=== PATIENT | female | born 1990 | race Caucasian/White ===

== ENCOUNTER 2018-09-25 13:01 | Emergency (ER) | payer OTHER ==
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
[2018-09-25 14:26] VITALS: BP 121/82
== END 2018-09-25 14:27 | disposition home or self-care (01) ==
LOC: ED 13:01
DX: S20.211A Contusion of right front wall of thorax, initial encounter (principal); V43.62XA Car passenger injured in collision with other type car in traffic accident, initial encounter
CPT/HCPCS: 71046; 72100; 99283

== ENCOUNTER 2018-12-21 20:57 | Emergency (ER) | payer OTHER ==
[2018-12-21 21:04] VITALS: BP 127/80
[2018-12-21] MEDS ORDERED: HYDROcod/ACET 5/325 Prepack 4 PO STA (21:20)
[2018-12-21] MEDS ORDERED: predniSONE 20 MG TABLET PO STA (21:20)
--- NOTE | 2018-12-21 21:28 | ED Physician Documentation ---
PD HPI BACK PAIN - Stated complaint Stated Complaint: BACK PX - Chief complaint Chief Complaint: Back Pain - History obtained from History obtained from: Patient - History of Present Illness Timing - onset: Other (28-year-old woman with 5 days of atraumatic back pain, it basically goes from the parathoracic muscles up high down to the para-Lumbar muscles down low. It is worse with bending and twisting and she does notice numbness in the left leg without urinary incontinence, saddle anesthesia or fevers.) Review of Systems Constitutional: denies: Fever, Chills Throat: denies: Dental pain / toothache, Sore throat Cardiac: denies: Chest pain / pressure, Palpitations Respiratory: denies: Dyspnea, Cough : reports: LMP (current). 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 Cardiovascular: Other HEENT: Tonsil/Adenoidectomy - Present Medications Home Medications: Ambulatory Orders Medication Instructions Recorded Confirmed Albuterol Sulfate 1 - 2 puffs PO Q4H 09/19/17 12/21/18 Duloxetine HCl [Cymbalta] 60 mg PO TID 09/19/17 12/21/18 Rizatriptan Benzoate [Maxalt] 10 mg PO DAILY 09/19/17 12/21/18 Cyclobenzaprine [Flexeril] 10 mg PO TID PRN #20 tablet 09/25/18 12/21/18 Hydrocodone/Acetaminophen 1 - 2 each PO Q6H PRN #14 tablet 12/21/18 [Hydrocodon-Acetaminophen 5-325] predniSONE [Deltasone] 60 mg PO DAILY 5 Days tablet 12/21/18 - Allergies Allergies/Adverse Reactions: Allergies Allergy/AdvReac Type Severity Reaction Status Date / Time oxycodone Allergy Severe Anaphylaxis Verified 12/21/18 21:05 gabapentin Allergy Unknown Verified 12/21/18 21:05 - Social History Does the pt smoke?: No Smoking Status: Never smoker Does the pt drink ETOH?: Yes Does the pt have substance abuse?: No - Immunizations Immunizations are current?: Yes Immunizations: TDAP current <10years, TDAP >10years/unknown - POLST Patient has POLST: No PD ED PE NORMAL - Vitals Vital signs reviewed: Yes - General General: Alert and oriented X 3, Other (Comfortable at rest but winces with motion) - Neck Neck: Supple, no meningeal sign, No bony TTP - Cardiac Cardiac: RRR, No murmur - Respiratory Respiratory: No respiratory distress, Clear bilaterally - Abdomen Abdomen: Non tender - Back Back: Other (She has muscular tenderness of the paralumbar and parathoracic muscles without specific midline tenderness or localization.) - Extremities Extremities: Other (She has mild and very subjective decreased sensation in the left leg but does not follow a dermatomal pattern, it is the whole leg. There is no associated asymmetry in her slightly hyperactive reflexes in both the patellar and Achilles areas. She has normal strength in flexion and extension at the ankles and knees.) - Neuro Neuro: Alert and oriented X 3, Normal speech Results - Vitals Vitals: Vital Signs - 24 hr 12/21/18 21:00 Temperature 36.8 C Heart Rate 99 Respiratory 17 Rate Blood Pressure 127/80 O2 Saturation 95 Oxygen O2 Source Room air PD MEDICAL DECISION MAKING - ED course ED course: This patient has seemingly uncomplicated musculoskeletal back pain. The patient has no "red flags." Specifically denies IV drug use, fevers, incontinence, saddle anesthesia. Spinal epidural abscess was considered, given that the patient has no fever, is not diabetic, has no spinal tenderness, does not use IV drugs, and has no bilateral neurologic symptoms, the diagnosis of spinal epidural abscess is considered exceedingly unlikely. Departure - Departure Disposition: 01 Home, Self Care Clinical Impression: Back pain Qualifiers: Back pain location: back pain in unspecified location Chronicity: acute Back pain laterality: bilateral Qualified Code(s): M54.9 - Dorsalgia, unspecified Condition: Good Record reviewed to determine appropriate education?: Yes Instructions: ED Neck Back Pain General Prescriptions: Hydrocodone/Acetaminophen [Hydrocodon-Acetaminophen 5-325] 1 - 2 each PO Q6H PRN #14 tablet PRN Reason: pain predniSONE [Deltasone] 60 mg PO DAILY 5 Days tablet Comments: Call your doctor to arrange a follow-up appointment, make the next available appointment. In the interim, return anytime if worse or if new symptoms develop.
== END 2018-12-21 21:36 | disposition home or self-care (01) ==
LOC: ED 20:57
DX: M54.9 Dorsalgia, unspecified (principal)
CPT/HCPCS: 99283; J7512

== ENCOUNTER 2019-02-02 16:57 | Emergency (ER) | payer OTHER ==
[2019-02-02 17:46] LABS: BASOPHILS % (AUTO) 0.2 %; EOSINOPHILS # (AUTO) 0.2 10^3/uL (0.0-0.7); EOSINOPHILS % (AUTO) 1.5 %; HGB - HEMOGLOBIN 15.7 g/dL (12.0-16.0); LYMPHOCYTES # (AUTO) 0.9 10^3/uL (1.5-3.5); LYMPHOCYTES % (AUTO) 7.2 %; MEAN CORPUSCULAR HEMOGLOBIN 30.5 pg (27.0-31.0); MEAN CORPUSCULAR HGB CONC 33.9 g/dL (32.0-36.0); MEAN CORPUSCULAR VOLUME 89.9 fL (81.0-99.0); MEAN PLATELET VOLUME 8.1 fL (7.9-10.8); MONOCYTES % (AUTO) 7.7 %; NEUTROPHILS # (AUTO) 10.4 10^3/uL (1.5-6.6); NEUTROPHILS % (AUTO) 83.4 %; PLT - PLATELET COUNT 301 10^3/uL (130-450); RED BLOOD COUNT 5.14 10^6/uL (4.20-5.40); RED CELL DISTRIBUTION WIDTH 12.9 % (12.0-15.0); WHITE BLOOD COUNT 12.5 x10^3/uL (4.8-10.8)
[2019-02-02 17:54] LABS: ALBUMIN 4.9 g/dL (3.2-5.5); ALBUMIN/GLOBULIN RATIO 1.6 (1.0-2.2); BILIRUBIN,TOTAL 0.9 mg/dL (0.2-1.0); CALCIUM 9.2 mg/dL (8.5-10.3); TOTAL PROTEIN 7.9 g/dL (6.7-8.2)
[2019-02-02 18:29] LABS: BILIRUBIN,URINE NEGATIVE (NEGATIVE); GLUCOSE, URINE (UA) NEGATIVE (NEGATIVE); KETONES,URINE (UA) NEGATIVE (NEGATIVE); LEUKOCYTE ESTERASE, URINE NEGATIVE (NEGATIVE); NITRITE,URINE POSITIVE (NEGATIVE); OCCULT BLOOD,URINE TRACE-INTA (NEGATIVE); PH,URINE 5.5 PH (5.0-7.5); PROTEIN,URINE TRACE mg/dL (NEGATIVE); UROBILINOGEN,URINE 0.2 (NORMAL) E.U./dL (NORMAL)
[2019-02-02 18:31] LABS: CLARITY,URINE TURBID (CLEAR); HCG UR QUAL NEGATIVE
[2019-02-02 18:38] LABS: AMORPHOUS SEDIMENT,UR Marked /LPF; BACTERIA,URINE None Seen /HPF (None Seen); RBC,URINE None Seen /HPF (0-5); SQUAMOUS EPITHELIAL CELL,UR NONE SEEN (<= Few)
--- NOTE | 2019-02-02 19:23 | ED Physician Documentation ---
PD HPI NVD - Stated complaint Stated Complaint: VOMITING - Chief complaint Chief Complaint: Abd Pain - History obtained from History obtained from: Patient - History of Present Illness Timing - onset: Last night Timing - duration: Hours (12) Timing - details: Abrupt onset, Still present Associated symptoms: Abdominal pain (crampy intermittent), Loss of appetite. No: Fever, Near syncope / syncope, Dysuria Contributing factors: No: Sick contact, Bad food, Travel Worsened by: Eating Similar symptoms before: Has not had sx before Recently seen: Not recently seen Review of Systems Constitutional: reports: Myalgias. denies: Fever, Chills Nose: denies: Rhinorrhea / runny nose, Congestion Throat: denies: Sore throat Respiratory: denies: Cough GI: reports: Nausea, Vomiting (many times), Diarrhea. denies: Abdominal Swelling, Constipation, Hematemesis, Bloody / black stool : denies: Dysuria, Frequency Neurologic: reports: Generalized weakness, Near syncope. 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 Cardiovascular: Other HEENT: Tonsil/Adenoidectomy - Present Medications Home Medications: Ambulatory Orders Medication Instructions Recorded Confirmed Albuterol Sulfate 1 - 2 puffs PO Q4H PRN 09/19/17 02/02/19 Duloxetine HCl [Cymbalta] 60 mg PO TID 09/19/17 02/02/19 Rizatriptan Benzoate [Maxalt] 10 mg PO DAILY PRN 09/19/17 02/02/19 Cyclobenzaprine [Flexeril] 10 mg PO TID PRN #20 tablet 09/25/18 02/02/19 Diphenoxylate/Atropine [Lomotil] 1 each PO QID PRN #12 tablet 02/02/19 Ferrous Sulfate 325 mg PO DAILY 02/02/19 02/02/19 Ondansetron Odt [Zofran] 4 mg TL Q6H PRN #10 tablet 02/02/19 - Allergies Allergies/Adverse Reactions: Allergies Allergy/AdvReac Type Severity Reaction Status Date / Time oxycodone Allergy Severe Anaphylaxis Verified 02/02/19 17:06 gabapentin Allergy Unknown Verified 02/02/19 17:06 - Social History Does the pt smoke?: No Smoking Status: Never smoker Does the pt drink ETOH?: Yes Does the pt have substance abuse?: No - Immunizations Immunizations are current?: Yes Immunizations: TDAP current <10years, TDAP >10years/unknown - POLST Patient has POLST: No PD ED PE NORMAL - Vitals Vital signs reviewed: Yes - General General: Alert and oriented X 3, No acute distress, Well developed/nourished - HEENT HEENT: Pharynx benign. No: Moist mucous membranes - Neck Neck: Supple, no meningeal sign, No adenopathy - Cardiac Cardiac: RRR, No murmur - Respiratory Respiratory: Clear bilaterally - Abdomen Abdomen: Normal bowel sounds, Soft, Non tender, Non distended - Back Back: No CVA TTP - Derm Derm: Normal color, Warm and dry Results - Vitals Vitals: Oxygen O2 Source Room air - Labs Labs: Microbiology 02/02/19 17:28 Urine Culture - Preliminary Urine,Clean Catch CULTURE IN PROGRESS. RESULTS TO FOLLOW. Laboratory Tests 02/02/19 02/02/19 02/02/19 17:25 17:25 17:28 WBC 12.5 H RBC 5.14 Hgb 15.7 Hct 46.2 MCV 89.9 MCH 30.5 MCHC 33.9 RDW 12.9 Plt Count 301 MPV 8.1 Neut # (Auto) 10.4 H Lymph # (Auto) 0.9 L [place] # (Auto) 1.0 Eos # (Auto) 0.2 Baso # (Auto) 0.0 Absolute Nucleated RBC 0.00 Nucleated RBC % 0.0 Sodium 139 Potassium 3.7 Chloride 103 Carbon Dioxide 24 Anion Gap 12.0 BUN 14 Creatinine 1.0 Estimated GFR (MDRD) 66 L Glucose 107 H Calcium 9.2 Total Bilirubin 0.9 AST 24 ALT 15 Alkaline Phosphatase 68 Total Protein 7.9 Albumin 4.9 Globulin 3.0 Albumin/Globulin Ratio 1.6 Lipase 29 Urine Color YELLOW Urine Clarity TURBID Urine pH 5.5 Ur Specific [place] >=1.030 H Urine Protein TRACE Urine Glucose (UA) NEGATIVE Urine Ketones NEGATIVE Urine Occult Blood TRACE-INTA Urine Nitrite POSITIVE H Urine Bilirubin NEGATIVE Urine Urobilinogen 0.2 (NORMAL) Ur Leukocyte Esterase NEGATIVE Urine RBC None Seen Urine WBC 0-3 Ur Squamous Epith Cells NONE SEEN Amorphous Sediment Marked Urine Bacteria None Seen Ur Microscopic Review INDICATED Urine Culture Comments INDICATED Urine HCG, Qual NEGATIVE PD MEDICAL DECISION MAKING - ED course Complexity details: re-evaluated patient (feeling improved with IV fluids and meds. ), considered differential (she did feel lightheaded and is tachycardic, and so shared decision to give IV fluids and meds. ), d/w patient Departure - Departure Disposition: 01 Home, Self Care Clinical Impression: Nausea vomiting and diarrhea, Dehydration Condition: Stable Record reviewed to determine appropriate education?: Yes Instructions: ED Gastroenteritis Viral Follow-Up: KEE MARINELLI [Primary Care Provider] - Prescriptions: Diphenoxylate/Atropine [Lomotil] 1 each PO QID PRN #12 tablet PRN Reason: Diarrhea Ondansetron Odt [Zofran] 4 mg TL Q6H PRN #10 tablet PRN Reason: Nausea / Vomiting Comments: Small frequent fluids at home. Start with bland food such as simple carbohydrates (pastas, rice, breads and cereals). Progress diet as able. Ondansetron if needed for nausea. Lomotil if needed for diarrhea. Tylenol if needed for pains and cramps. The symptoms typically are viral and last for a day or 2 and then improve. Recheck if not improved over that timeframe and return if worse. Discharge Date/Time: 02/02/19 21:35
[2019-02-02] MEDS ORDERED: SODIUM CHLORIDE 0.9% 1,000 ML IV ONE ×2 (19:29→19:31)
[2019-02-02] MEDS ORDERED: KETOROLAC 15 MG/ML VIAL IVP STA (19:29)
[2019-02-02] MEDS ORDERED: ONDANSETRON 4 MG/2 ML VIAL IVP STA (19:29)
[2019-02-02] MEDS ORDERED: DIPHENOX/ATROPINE 2.5/0.025 MG TABLET PO STA (19:30)
[2019-02-02] MEDS ORDERED: MORPHINE 10 MG/ML VIAL IVP STA (19:30)
[2019-02-02 21:07] VITALS: BP 97/55
[2019-02-02] MEDS ORDERED: ONDANSETRON ODT 4 MG Prepack 2 TL PRN (21:16)
== END 2019-02-02 21:35 | disposition home or self-care (01) ==
LOC: ED 16:57
DX: E86.0 Dehydration (principal); R11.2 Nausea with vomiting, unspecified; R19.7 Diarrhea, unspecified
CPT/HCPCS: 36415; 80053; 81001; 81025; 83690; 85025; 87086; 96361; 96374; 96375; 99283; A9270; 81003

== ENCOUNTER 2019-05-04 19:43 | Emergency (ER) | payer OTHER ==
[2019-05-04 20:31] LABS: BASOPHILS # (AUTO) 0.1 10^3/uL (0.0-0.1); BASOPHILS % (AUTO) 0.9 %; EOSINOPHILS # (AUTO) 0.4 10^3/uL (0.0-0.7); EOSINOPHILS % (AUTO) 3.9 %; HGB - HEMOGLOBIN 13.8 g/dL (12.0-16.0); LYMPHOCYTES # (AUTO) 3.2 10^3/uL (1.5-3.5); LYMPHOCYTES % (AUTO) 31.4 %; MEAN CORPUSCULAR HEMOGLOBIN 30.3 pg (27.0-31.0); MEAN CORPUSCULAR HGB CONC 32.9 g/dL (32.0-36.0); MEAN CORPUSCULAR VOLUME 92.3 fL (81.0-99.0); MEAN PLATELET VOLUME 9.9 fL (7.9-10.8); MONOCYTES # (AUTO) 1.2 10^3/uL (0.0-1.0); MONOCYTES % (AUTO) 11.5 %; NEUTROPHILS # (AUTO) 5.2 10^3/uL (1.5-6.6); NEUTROPHILS % (AUTO) 52.1 %; PLT - PLATELET COUNT 253 10^3/uL (130-450); RED BLOOD COUNT 4.55 10^6/uL (4.20-5.40); RED CELL DISTRIBUTION WIDTH 11.9 % (12.0-15.0)
[2019-05-04 20:45] LABS: ALBUMIN 4.4 g/dL (3.2-5.5); ALBUMIN/GLOBULIN RATIO 1.6 (1.0-2.2); BILIRUBIN,TOTAL 0.8 mg/dL (0.2-1.0); CALCIUM 9.4 mg/dL (8.5-10.3); CREATININE 0.9 mg/dL (0.4-1.0); TOTAL PROTEIN 7.1 g/dL (6.7-8.2)
[2019-05-04] MEDS ORDERED: ALBUTEROL NEB 2.5 MG/3 ML INH STA (20:55)
--- NOTE | 2019-05-04 21:06 | XRAY Report ---
Reason: Chest Pain Procedure Date: 05/04/2019 Accession Number: [id number] / [id number] Procedure: XR - Chest 1 View X-Ray CPT Code: 55194 FULL RESULT: EXAM: CHEST RADIOGRAPHY EXAM DATE: 05/04/2019 08:40 PM. CLINICAL HISTORY: Chest Pain. COMPARISON: CHEST 2 VIEW 09/25/2018 1:40 PM. TECHNIQUE: 1 view. FINDINGS: Lungs/Pleura: No dense consolidation. No large effusion or pneumothorax. No pulmonary edema. Mediastinum: Heart and mediastinal contours are unremarkable. Other: None. IMPRESSION: No acute radiographic pulmonary abnormalities. RADIA
--- NOTE | 2019-05-04 21:11 | ED Physician Documentation ---
History of Present Illness - Stated complaint Stated Complaint: CP/TIGHTNESS/PALPITATIONS - Chief complaint Chief Complaint: Cardiac - History obtained from History obtained from: Patient - History of Present Illness Timing: Yesterday Pain level max: 3 Pain level now: 3 - Additonal information Additional information: 28-year-old female presents to the emergency department stating that her chest feels tight since yesterday. States she feels like she cannot get a full breath. No chest pain. No change with inspiration. No recent travel. No calf swelling. Nothing makes it better or worse. Has not used inhalers before. Is not coughing. No fevers. No abdominal pain. Has had her gallbladder and appen gunnar removed. Denies any possibility of Review of Systems Constitutional: denies: Fever, Chills Throat: denies: Sore throat Cardiac: denies: Chest pain / pressure, Palpitations Respiratory: denies: Cough, Hemoptysis, Wheezing GI: reports: Nausea. 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 Cardiovascular: Other HEENT: Tonsil/Adenoidectomy - Present Medications Home Medications: Ambulatory Orders Medication Instructions Recorded Confirmed Albuterol Sulfate 1 - 2 puffs PO Q4H PRN 09/19/17 02/02/19 Duloxetine HCl [Cymbalta] 60 mg PO TID 09/19/17 02/02/19 Rizatriptan Benzoate [Maxalt] 10 mg PO DAILY PRN 09/19/17 02/02/19 Cyclobenzaprine [Flexeril] 10 mg PO TID PRN #20 tablet 09/25/18 02/02/19 Diphenoxylate/Atropine [Lomotil] 1 each PO QID PRN #12 tablet 02/02/19 Ferrous Sulfate 325 mg PO DAILY 02/02/19 02/02/19 Ondansetron Odt [Zofran] 4 mg TL Q6H PRN #10 tablet 02/02/19 Albuterol Sulf [Ventolin Hfa 1 - 2 puffs INH Q4HR PRN #1 inhaler 05/04/19 Inhaler] predniSONE [Deltasone] 10 mg PO [id number] #42 tab 05/04/19 - Allergies Allergies/Adverse Reactions: Allergies Allergy/AdvReac Type Severity Reaction Status Date / Time oxycodone Allergy Severe Anaphylaxis Verified 02/02/19 17:06 gabapentin Allergy Unknown Verified 02/02/19 17:06 - Social History Does the pt smoke?: No Smoking Status: Never smoker Does the pt drink ETOH?: Yes Does the pt have substance abuse?: No - Immunizations Immunizations are current?: Yes Immunizations: TDAP current <10years, TDAP >10years/unknown - POLST Patient has POLST: No PD ED PE NORMAL - Vitals Vital signs reviewed: Yes - General General: Alert and oriented X 3, No acute distress, Well developed/nourished - HEENT HEENT: PERRL, Moist mucous membranes - Neck Neck: Supple, no meningeal sign - Cardiac Cardiac: RRR, Strong equal pulses - Respiratory Respiratory: No respiratory distress, Clear bilaterally, Other (Diminished breath sounds bilaterally) - Abdomen Abdomen: Soft, Non tender, Non distended - Back Back: No CVA TTP, No spinal TTP - Derm Derm: Warm and dry - Extremities Extremities: No edema, No calf tenderness / cord - Neuro Neuro: Alert and oriented X 3 - Psych Psych: Normal mood, Normal affect Results - Vitals Vitals: Vital Signs - 24 hr 05/04/19 05/04/19 19:55 21:51 Temperature 36.7 C Heart Rate 88 60 Respiratory 16 14 Rate Blood Pressure 126/77 144/91 H O2 Saturation 100 100 Oxygen O2 Source Room air - EKG (time done) 1950 Rate: Rate (enter#) (85) Rhythm: NSR [place]: Normal Intervals: Normal [place] QRS: Normal Ischemia: Normal ST segments - Labs Labs: Laboratory Tests 05/04/19 05/04/19 05/04/19 20:25 20:25 20:25 WBC 10.0 RBC 4.55 Hgb 13.8 Hct 42.0 MCV 92.3 MCH 30.3 MCHC 32.9 RDW 11.9 L Plt Count 253 MPV 9.9 Neut # (Auto) 5.2 Lymph # (Auto) 3.2 [place] # (Auto) 1.2 H Eos # (Auto) 0.4 Baso # (Auto) 0.1 Absolute Nucleated RBC 0.00 Nucleated RBC % 0.0 Sodium 140 Potassium 3.7 Chloride 102 Carbon Dioxide 26 Anion Gap 12.0 BUN 14 Creatinine 0.9 Estimated GFR (MDRD) 75 L Glucose 88 Calcium 9.4 Total Bilirubin 0.8 AST 18 ALT 11 Alkaline Phosphatase 61 Troponin I < 0.04 Total Protein 7.1 Albumin 4.4 Globulin 2.7 Albumin/Globulin Ratio 1.6 Lipase 37 - Rads (name of study) cxr Radiology: Prelim report reviewed, EMP read contemporaneously, See rad report (No acute radiographic pulmonary abnormalities. ) PD MEDICAL DECISION MAKING - ED course Complexity details: reviewed results, re-evaluated patient, considered differential, d/w patient ED course: 28-year-old female with what appears to be an asthma exacerbation. No evidence of pulmonary embolus, acute coronary syndrome, pneumothorax. Will place on a steroid taper for home. We will refill her inhaler as well. Patient counseled regarding signs and symptoms for which I believe and urgent re-evaluation would be necessary. Patient with good understanding of and agreement to plan and is comfortable going home at this time This document was made in part using voice recognition software. While efforts are made to proofread this document, sound alike and grammatical errors may occur. Departure - Departure Disposition: 01 Home, Self Care Clinical Impression: Asthma exacerbation Qualifiers: Asthma severity: unspecified severity Asthma persistence: unspecified Qualified Code(s): J45.901 - Unspecified asthma with (acute) exacerbation Condition: Good Instructions: ED Reactive Airway Disease Follow-Up: KEE MARINELLI [Primary Care Provider] - Within 1 week Prescriptions: Albuterol Sulf [Ventolin Hfa Inhaler] 1 - 2 puffs INH Q4HR PRN #1 inhaler PRN Reason: Shortness Of Air/Wheezing predniSONE [Deltasone] 10 mg PO [id number] #42 tab Comments: Use the inhaler as prescribed. Return if you worsen. Follow-up with your doctor for further care. Discharge Date/Time: 05/04/19 22:07
[2019-05-04] MEDS ORDERED: predniSONE 20 MG TABLET PO STA (21:40)
[2019-05-04 21:53] VITALS: BP 144/91
== END 2019-05-04 22:07 | disposition home or self-care (01) ==
LOC: ED 19:43
DX: J45.901 Unspecified asthma with (acute) exacerbation (principal)
CPT/HCPCS: 36415; 71045; 80053; 83690; 84484; 85025; 93005; 94640; 99284; J7512

== ENCOUNTER 2019-05-10 19:37 | Emergency (ER) | payer OTHER ==
[2019-05-10 19:59] LABS: BASOPHILS # (AUTO) 0.1 10^3/uL (0.0-0.1); BASOPHILS % (AUTO) 0.3 %; EOSINOPHILS % (AUTO) 0.1 %; HGB - HEMOGLOBIN 13.5 g/dL (12.0-16.0); LYMPHOCYTES % (AUTO) 13.6 %; MEAN CORPUSCULAR HEMOGLOBIN 30.1 pg (27.0-31.0); MEAN CORPUSCULAR HGB CONC 32.5 g/dL (32.0-36.0); MEAN CORPUSCULAR VOLUME 92.6 fL (81.0-99.0); MEAN PLATELET VOLUME 9.6 fL (7.9-10.8); MONOCYTES % (AUTO) 6.5 %; NEUTROPHILS # (AUTO) 11.8 10^3/uL (1.5-6.6); NEUTROPHILS % (AUTO) 78.6 %; PLT - PLATELET COUNT 315 10^3/uL (130-450); RED BLOOD COUNT 4.48 10^6/uL (4.20-5.40); RED CELL DISTRIBUTION WIDTH 11.9 % (12.0-15.0)
--- NOTE | 2019-05-10 20:01 | ED Physician Documentation ---
PD HPI OVERDOSE - Stated complaint Stated Complaint: OD - Chief complaint Chief Complaint: MHE - History obtained from History obtained from: Patient - History of Present Illness Timing - onset: How many hours ago (1-2) Subtance(s) ingested: Single (hydroxyzine, about 11 tabs.). No: EtOH Associated symptoms: Other (somnolence) Contributing factors: Depresssed, Other (She states she has had problems with depression and anxiety. She has been on antidepressant for a while. She is seen by her provider recently and added buspirone twice daily and hydroxyzine to use as needed for anxiety. The patient states she is feeling anxious this afternoon and took 2 of the hydroxyzine tablets as directed. She had taken a couple of them last evening as well. She states she was feeling only slightly sleepy and still anxious and got upset and so took a "handful" of the hydroxyzine. Her found out in part of here for evaluation. She is feeling sleepy and dry mouth but no blurred vision is able to talk clearly. She is not feeling lightheaded. She denies suicidal intent but stated she just wanted the anxiety to stop and says she felt she lost control of her impulse at the time of taking the tablets.). No: Suicidal Similar symptoms before: Has not had sx before (She denies prior suicide at tempts or overdoses.) Recently seen: Clinic (see above) Review of Systems Constitutional: denies: Fever Nose: denies: Rhinorrhea / runny nose, Congestion Throat: denies: Sore throat Cardiac: denies: Chest pain / pressure Respiratory: denies: Cough GI: reports: Nausea. denies: Vomiting, Diarrhea Skin: denies: Rash, Laceration (s) Neurologic: denies: Altered mental status, Headache PD PAST MEDICAL HISTORY - Past Medical History Cardiovascular: Other Respiratory: Asthma Neuro: Migraines GI: Ulcers Psych: Depression, Anxiety, Panic attacks Musculoskeletal: Fibromyalgia - Past Surgical History Past Surgical History: Yes General: Cholecystectomy, Appendectomy /[employer]: section Cardiovascular: Other HEENT: Tonsil/Adenoidectomy - Present Medications Home Medications: Ambulatory Orders Medication Instructions Recorded Confirmed Albuterol Sulfate 1 - 2 puffs PO Q4H PRN 09/19/17 02/02/19 Duloxetine HCl [Cymbalta] 60 mg PO TID 09/19/17 02/02/19 Rizatriptan Benzoate [Maxalt] 10 mg PO DAILY PRN 09/19/17 02/02/19 Cyclobenzaprine [Flexeril] 10 mg PO TID PRN #20 tablet 09/25/18 02/02/19 Diphenoxylate/Atropine [Lomotil] 1 each PO QID PRN #12 tablet 02/02/19 Ferrous Sulfate 325 mg PO DAILY 02/02/19 02/02/19 Ondansetron Odt [Zofran] 4 mg TL Q6H PRN #10 tablet 02/02/19 Albuterol Sulf [Ventolin Hfa 1 - 2 puffs INH Q4HR PRN #1 inhaler 05/04/19 Inhaler] predniSONE [Deltasone] 10 mg PO [id number] #42 tab 05/04/19 - Allergies Allergies/Adverse Reactions: Allergies Allergy/AdvReac Type Severity Reaction Status Date / Time oxycodone Allergy Severe Anaphylaxis Verified 05/10/19 19:42 gabapentin Allergy Unknown Verified 05/10/19 19:42 - Social History Does the pt smoke?: No Smoking Status: Never smoker Does the pt drink ETOH?: Yes Does the pt have substance abuse?: No - Immunizations Immunizations are current?: Yes Immunizations: TDAP current <10years, TDAP >10years/unknown - POLST Patient has POLST: No PD ED PE NORMAL - Vitals Vital signs reviewed: Yes - General General: Alert and oriented X 3, No acute distress, Well developed/nourished - HEENT HEENT: Pharynx benign. No: Moist mucous membranes - Neck Neck: Supple, no meningeal sign, No adenopathy - Cardiac Cardiac: RRR, No murmur - Respiratory Respiratory: Clear bilaterally - Abdomen Abdomen: Soft, Non tender - Derm Derm: Normal color, Warm and dry - Extremities Extremities: No edema - Neuro Neuro: Alert and oriented X 3, preservationist 2-12 intact, No motor deficit, No sensory deficit, Normal speech Eye Opening: Spontaneous Motor: Obeys Commands Verbal: Oriented GCS Score: 15 Results - Vitals Vitals: Vital Signs - 24 hr 05/10/19 05/10/19 05/10/19 19:38 19:51 20:12 Temperature 36.0 C L Heart Rate 69 62 56 L Respiratory 18 9 L 15 Rate Blood Pressure 122/74 124/71 115/86 H O2 Saturation 99 100 97 05/10/19 05/10/19 05/10/19 20:30 21:00 21:52 Temperature Heart Rate 56 L 56 L 53 L Respiratory 17 16 16 Rate Blood Pressure 103/67 106/60 106/66 O2 Saturation 98 100 99 05/10/19 05/10/19 05/10/19 22:00 22:30 23:00 Temperature Heart Rate 45 L 47 L 62 Respiratory 14 16 20 Rate Blood Pressure 101/66 108/67 107/68 O2 Saturation 100 99 100 05/10/19 23:21 Temperature 36.8 C Heart Rate 62 Respiratory 14 Rate Blood Pressure 107/68 O2 Saturation 100 Oxygen O2 Source Room air - EKG (time done) 20:08 Rate: Rate (enter#) (64) Rhythm: NSR [place]ette: Normal Intervals: Normal AL. No: Prolonged QT Ischemia: Normal ST segments. No: ST elevation c/w ischemia, ST depression 22:26 Rate: Rate (enter#) (45) Rhythm: Sinus bradycardia Intervals: No: Prolonged QT Ischemia: Normal ST segments. No: ST elevation c/w ischemia, ST depression - Labs Labs: Laboratory Tests 05/10/19 05/10/19 05/10/19 19:48 19:48 19:54 WBC 15.0 H RBC 4.48 Hgb 13.5 Hct 41.5 MCV 92.6 MCH 30.1 MCHC 32.5 RDW 11.9 L Plt Count 315 MPV 9.6 Neut # (Auto) 11.8 H Lymph # (Auto) 2.0 Reagan # (Auto) 1.0 Eos # (Auto) 0.0 Baso # (Auto) 0.1 Absolute Nucleated RBC 0.00 Nucleated RBC % 0.0 Sodium Potassium Chloride Carbon Dioxide Anion Gap BUN Creatinine Estimated GFR (MDRD) Glucose Calcium Total Bilirubin AST ALT Alkaline Phosphatase Total Protein Albumin Globulin Albumin/Globulin Ratio Lipase TSH Urine Color LIGHT YELLOW Urine Clarity CLEAR Urine pH 6.5 Ur Specific [place] <=1.005 Urine Protein NEGATIVE Urine Glucose (UA) NEGATIVE Urine Ketones NEGATIVE Urine Occult Blood NEGATIVE Urine Nitrite NEGATIVE Urine Bilirubin NEGATIVE Urine Urobilinogen 0.2 (NORMAL) Ur Leukocyte Esterase NEGATIVE Ur Microscopic Review NOT INDICATED Urine Culture Comments NOT INDICATED Urine HCG, Qual NEGATIVE Salicylates Urine Opiates Screen NEGATIVE Ur Oxycodone Screen NEGATIVE Urine Methadone Screen NEGATIVE Ur Propoxyphene Screen NEGATIVE Acetaminophen Ur Barbiturates Screen NEGATIVE Ur Tricyclics Screen NEGATIVE Ur Phencyclidine Scrn NEGATIVE Ur Amphetamine Screen NEGATIVE U Methamphetamines Scrn NEGATIVE U Benzodiazepines Scrn NEGATIVE Urine Cocaine Screen NEGATIVE U Cannabinoids Screen NEGATIVE Ethyl Alcohol 05/10/19 05/10/19 05/10/19 19:54 19:54 19:54 WBC RBC Hgb Hct MCV MCH MCHC RDW Plt Count MPV Neut # (Auto) Lymph # (Auto) Reagan # (Auto) Eos # (Auto) Baso # (Auto) Absolute Nucleated RBC Nucleated RBC % Sodium 141 Potassium 3.5 Chloride 101 Carbon Dioxide 28 Anion Gap 12.0 BUN 11 Creatinine 0.9 Estimated GFR (MDRD) 75 L Glucose 122 H Calcium 9.6 Total Bilirubin 0.6 AST 14 ALT 11 Alkaline Phosphatase 58 Total Protein 7.3 Albumin 4.5 Globulin 2.8 Albumin/Globulin Ratio 1.6 Lipase 49 TSH 0.85 Urine Color Urine Clarity Urine pH Ur Specific [place] Urine Protein Urine Glucose (UA) Urine Ketones Urine Occult Blood Urine Nitrite Urine Bilirubin Urine Urobilinogen Ur Leukocyte Esterase Ur Microscopic Review Urine Culture Comments Urine HCG, Qual Salicylates < 6.0 Urine Opiates Screen Ur Oxycodone Screen Urine Methadone Screen Ur Propoxyphene Screen Acetaminophen < 10 L Ur Barbiturates Screen Ur Tricyclics Screen Ur Phencyclidine Scrn Ur Amphetamine Screen U Methamphetamines Scrn U Benzodiazepines Scrn Urine Cocaine Screen U Cannabinoids Screen Ethyl Alcohol < 5.0 PD MEDICAL DECISION MAKING - ED course Complexity details: considered differential (She was sleepy with a little bit of dry mouth and may be slight blurred vision. She was able to talk clearly. Her vitals were good. She was not tachycardic. It has been 1 to 2 hours since the ingestion of likely about 11 hydroxyzine tablets by pill count. We watched her another couple of hours and she does not develop any tachycardia or cysts worsening symptoms. Heart rate did show sinus bradycardia but she did say her heart rate tends to be slow. The QT interval was normal. She does feel that she would do well at home and was discharged home.), d/w patient ED course: She states she is not suicidal. She is not feeling anxious at this time. She promises to take only the prescribed amount of medications. Her is comfortable bringing her home. Departure - Departure Disposition: 01 Home, Self Care Clinical Impression: Stress reaction Overdose of medication Qualifiers: Encounter type: initial encounter Injury intent: undetermined intent Qualified Code(s): T50.904A - Poisoning by unspecified drugs, medicaments and biological substances, undetermined, initial encounter Condition: Stable Record reviewed to determine appropriate education?: Yes Instructions: ED Stress React, ED Depression Follow-Up: KEE MARINELLI [Primary Care Provider] - Comments: Continue your current med medications. He will be sleepy tonight but do not take any more of the hydroxyzine for a day or 2. He can then resume it at the prescribed dosings. Call the crisis line if you need/ feeling stressed. Do not take extra medications more than prescribed. Follow-up with your primary care for also initiating counseling to help deal with stress management and anxiety. Discharge Date/Time: 05/10/19 23:33
[2019-05-10 20:14] LABS: MUDS CUTOFF CONCENTRATIONS CUTOFF CONC BELOW:
[2019-05-10] MEDS ORDERED: SODIUM CHLORIDE 0.9% 1,000 ML IV ONE ×2 (20:14)
[2019-05-10] MEDS ORDERED: ONDANSETRON 4 MG/2 ML VIAL IVP STA (20:14)
[2019-05-10 20:17] LABS: ALBUMIN 4.5 g/dL (3.2-5.5); ALBUMIN/GLOBULIN RATIO 1.6 (1.0-2.2); ALKALINE PHOSPHATASE 58 IU/L (42-121); ALT ALANINE AMINOTRANSFERASE 11 IU/L (10-60); AST ASPARTATE AMINOTRANSFERASE 14 IU/L (10-42); BILIRUBIN,TOTAL 0.6 mg/dL (0.2-1.0); BUN - BLOOD UREA NITROGEN 11 mg/dL (6-20); CALCIUM 9.6 mg/dL (8.5-10.3); CARBON DIOXIDE - CO2 28 mmol/L (21-32); CHLORIDE 101 mmol/L (101-111); CREATININE 0.9 mg/dL (0.4-1.0); GFR - MDRD 75 (>89); GLUCOSE 122 mg/dL (70-100); LIPASE 49 U/L (22-51); SODIUM 141 mmol/L (135-145); TOTAL PROTEIN 7.3 g/dL (6.7-8.2)
[2019-05-10 20:18] LABS: BILIRUBIN,URINE NEGATIVE (NEGATIVE); GLUCOSE, URINE (UA) NEGATIVE (NEGATIVE); KETONES,URINE (UA) NEGATIVE (NEGATIVE); LEUKOCYTE ESTERASE, URINE NEGATIVE (NEGATIVE); NITRITE,URINE NEGATIVE (NEGATIVE); OCCULT BLOOD,URINE NEGATIVE (NEGATIVE); PH,URINE 6.5 PH (5.0-7.5); PROTEIN,URINE NEGATIVE (NEGATIVE); UROBILINOGEN,URINE 0.2 (NORMAL) E.U./dL (NORMAL)
[2019-05-10 20:18] LABS: ACETAMINOPHEN < 10 ug/mL (10-30); SALICYLATE < 6.0 mg/dL
[2019-05-10 20:19] LABS: CLARITY,URINE CLEAR (CLEAR); HCG UR QUAL NEGATIVE
[2019-05-10 20:52] LABS: AMPHETAMINE SCREEN,URINE NEGATIVE (NEGATIVE); BENZODIAZEPINES SCREEN, URINE NEGATIVE (NEGATIVE); COCAINE SCREEN URINE NEGATIVE (NEGATIVE); METHADONE SCREEN, URINE NEGATIVE (NEGATIVE); METHAMPHETAMINES SCREEN, URINE NEGATIVE (NEGATIVE); OPIATE SCREEN, URINE NEGATIVE (NEGATIVE); OXYCODONE SCREEN, URINE NEGATIVE (NEGATIVE); PROPOXYPHENE SCREEN, URINE NEGATIVE (NEGATIVE); TRICYCLIC ANTIDEPRESSANT,URINE NEGATIVE (NEGATIVE)
[2019-05-10 23:03] VITALS: BP 107/68
== END 2019-05-10 23:33 | disposition home or self-care (01) ==
LOC: ED 19:37
DX: T43.592A Poisoning by other antipsychotics and neuroleptics, intentional self-harm, initial encounter (principal); R11.0 Nausea; R40.0 Somnolence; F43.9 Reaction to severe stress, unspecified; F32.9 Major depressive disorder, single episode, unspecified; F41.9 Anxiety disorder, unspecified; R00.1 Bradycardia, unspecified
CPT/HCPCS: 36415; 80053; 80306; 80307; 80320; 80329; 81001; 81003; 81025; 83690; 84443; 85025; 87086; 93005; 96361; 96374; 99284